=== PATIENT | female | born 1955 ===

== ENCOUNTER 2017-02-12 18:45 | Emergency (ER) | payer MEDICARE, OTHER ==
[2017-02-12 19:06] VITALS: RESP 20
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
[2017-02-12] MEDS ORDERED: Sodium Chloride 0.9% 1,000 ML IV ONE (19:47)
[2017-02-12 20:10] LABS: BASO # 0.1 K/uL (0.0-0.2); BASO % 0.8 % (0.0-2.0); EOS # 0.1 K/uL (0.0-0.7); EOS % 1.9 % (0.0-4.0); HEMATOCRIT 37.3 % (34.0-47.0); LYMPH # 3.2 K/uL (1.0-4.3); LYMPH % 42.9 % (20.0-40.0); MEAN CELL VOLUME 86.5 fL (81.0-99.0); MEAN CORPUSCULAR HEMOGLOBIN 28.6 pg (27.0-31.0); MEAN PLATELET VOLUME 10.4 fL (7.2-11.7); MONO # 0.6 K/uL (0.0-0.8); MONO % 8.1 % (0.0-10.0); RED CELL DISTRIBUTION WIDTH 17.4 % (11.5-14.5); WHITE BLOOD COUNT 7.5 K/uL (4.8-10.8)
[2017-02-12 20:50] LABS: CHLORIDE 102 mmol/L (98-107); SODIUM 140 mmol/L (132-148)
[2017-02-12 20:51] LABS: POTASSIUM 3.9 mmol/L (3.6-5.2)
[2017-02-12 20:53] LABS: ALB/GLOB RATIO 1.3 (1.0-2.1); ALKALINE PHOSPHATASE 106 U/L (38-126); ALT/SGPT 36 U/L (9-52); AST/SGOT 52 U/L (14-36); BILIRUBIN,TOTAL 0.1 mg/dL (0.2-1.3); BLOOD UREA NITROGEN 8 mg/dL (7-17); CARBON DIOXIDE 23 mmol/L (22-30); GFR AFRICAN-AMERICAN > 60; GLUCOSE,RANDOM 106 mg/dL (65-105); TOTAL PROTEIN 6.7 g/dL (6.3-8.3)
[2017-02-12 20:54] LABS: CALCIUM 8.4 mg/dl (8.6-10.4)
[2017-02-12 22:26] VITALS: BP 99/48; PULSE 93; TEMP 98; O2SAT 96
--- NOTE | 2017-02-13 11:25 | RAD ---
PROCEDURE: Left Hip X-ray Radiographs. HISTORY: [facility] COMPARISON: None. FINDINGS: BONES: No acute fracture. JOINTS: Status post bilateral hip arthroplasty. No evidence of prosthesis loosening. SOFT TISSUES: Normal. OTHER FINDINGS: None. IMPRESSION: No acute fracture.
--- NOTE | 2017-02-13 11:26 | RAD ---
PROCEDURE: Left femur HISTORY: [facility] COMPARISON: Not available TECHNIQUE: AP and lateral views FINDINGS: No fracture. Left hip arthroplasty. No evidence of prosthesis loosening. IMPRESSION: No acute fracture.
== END 2017-02-12 22:26 | disposition home or self-care (01) ==
LOC: C.ER 18:45 → MERGE 18:45 → C.ER 22:26
DX: S70.02XA Contusion of left hip, initial encounter (principal); S80.02XA Contusion of left knee, initial encounter; V09.3XXA Pedestrian injured in unspecified traffic accident, initial encounter
CPT/HCPCS: 73502; 73552; 80053; 85025; 86850; 86900; 96361; 96374; 96375; 99285; J2270; J2405; J7040

== ENCOUNTER 2017-08-27 12:14 | Emergency (ER) | payer MEDICARE, OTHER ==
[2017-08-27 12:14] VITALS: BMI 31.7
--- NOTE | 2017-08-27 13:48 | RAD ---
PROCEDURE: Right Ankle Radiographs. HISTORY: r/o fx COMPARISON: 02/13/2015 FINDINGS: BONES: Generalized osteopenia present. Dominant anterior dorsal talar beaking a noted. Prominent posterior talar process and/or partially fused os trigonum noted -similar minimal dorsal navicular spurring. Lateral talar dome spurring. JOINTS: Normal. No osteoarthritis. Ankle mortise maintained. Talar dome intact SOFT TISSUES: Normal. OTHER FINDINGS: None. IMPRESSION: Generalized osteopenia. No interval fracture. Hypertrophic bony changes -similar. No interval pathology appreciated
--- NOTE | 2017-08-27 13:49 | RAD ---
PROCEDURE: Right Knee Radiographs. HISTORY: r/o fx COMPARISON: None. FINDINGS: BONES: Medial lateral femoral tibial joint space narrowing. Lateral view oblique impeding patellofemoral joint space assessment. Normal bone mineralization. No fracture or dislocation. JOINTS: Minimal osteoarthritis. JOINT EFFUSION: None. OTHER FINDINGS: None. IMPRESSION: Minimal senescent changes. No fracture or lytic lesion
--- NOTE | 2017-08-27 13:53 | RAD ---
PROCEDURE: HISTORY: r/o fx COMPARISON: 02/12/2017 TECHNIQUE: AP view of the pelvis and applicable frog leg views obtained. [place] FINDINGS: Bilateral hip arthroplasty images noted. The right hip is more fully visualized. The extreme femoral stem is excluded on both images today Overall the prosthesis appears centered to the acetabulum and to the femoral shaft. As before 2 screws in the acetabulum are noted. The more medial screw projects beyond the right medial pelvic osseous brim. If further evaluation is needed regarding its precise position in the right hemipelvis with consider CT of the pelvis. Its position is unchanged The lateral acetabular roof coalescence subchondral cystic changes with spurring are similar. IMPRESSION: Status post bilateral hip arthroplasty. No gross change in the right hip hardware. The screws are as positioned above 1 screw projecting into the right hemipelvis as before. Please note the above comments/ considerations regarding additional elective CT imaging
[2017-08-27 14:40] VITALS: BP 120/70; PULSE 68; RESP 18; TEMP 97.3; O2SAT 99
--- NOTE | 2017-08-27 18:05 | C.PDOC ---
History Of Present Illness 62 year old female, with a history of bilateral hip replacement, presents to the ED with complaints of pain to the right hip and knee, status post slip and fall onto her buttocks yesterday. Patient reports she fell onto her buttocks and has chronic joint pain, secondary to rheumatoid arthritis. She denies weakness, numbness, incontinence, or other complaints. Chief Complaint (Nursing): Lower Extremity Problem/Injury History Per: Patient History/Exam Limitations: no limitations Onset/Duration Of Symptoms: Hrs Current Symptoms Are (Timing): Still Present Recent travel outside of the [place]: No - Hip Description Of Injury: Fell - Knee Description Of Injury: Fell - Ankle/Foot Description Of Injury: Fell Past Medical History Reviewed: Historical Data, Nursing Documentation, Vital Signs Vital Signs: Last Vital Signs Temp 97.3 F L 08/27/17 14:37 Pulse 68 08/27/17 14:37 Resp 18 08/27/17 14:37 BP 120/70 08/27/17 14:37 Pulse Ox 99 08/27/17 18:50 - Medical History PMH: Anxiety, Arthritis, Osteoporosis, Rheumatoid Arthritis Surgical History: Cholecystectomy Family History: States: Unknown Family Hx, CAD - Social History Hx Tobacco Use: No Hx Alcohol Use: No Hx Substance Use: No - Immunization History Hx Tetanus Toxoid Vaccination: Yes Hx Influenza Vaccination: Yes Hx Pneumococcal Vaccination: Yes Review Of Systems Musculoskeletal: Positive for: Leg Pain (right knee and hip pain), Foot Pain ( right ankle pain ). Negative for: Back Pain Neurological: Negative for: Weakness, Numbness Physical Exam - Physical Exam Appears: Non-toxic, No Acute Distress Skin: Warm, Dry Head: Atraumatic, Normacephalic Neck: Normal ROM, No Midline Cervical Tenderness, No Paracervical Tenderness, Supple Cardiovascular: Rhythm Regular, No Murmur Respiratory: No Rales, No Rhonchi, No Wheezing, Other (Clear to auscultation bilaterally ) Gastrointestinal/Abdominal: Soft, No Tenderness, No Distention, No Guarding, No Rebound Extremity: No Normal ROM (decreased ROM in both hips ), No Tenderness, Capillary Refill (good capillary refill, less than two seconds ), Deformity (no changes to deformity of bilateral hangs, according to patient, secondary to rheumatoid arthritis ), No Swelling, Other (Arthritic changes in bilateral knees and ankles ) Pulses: Left Radial: Normal, Right Radial: Normal, Left Dorsalis Pedis: Normal, Right Dorsalis Pedis: Normal Neurological/Psych: Oriented x3, Normal Motor, Normal Sensation ED Course And Treatment O2 Sat by Pulse Oximetry: 99 (RA) - Other Rad Right Ankle X-Ray X-Ray: Viewed By Me, Read By Radiologist Interpretation: FINDINGS: BONES: Generalized osteopenia present. Dominant anterior dorsal talar beaking a noted. Prominent posterior talar process and/or partially fused os trigonum noted -similar minimal dorsal navicular spurring. Lateral talar dome spurring. JOINTS: Normal. No osteoarthritis. Ankle mortise maintained. Talar dome intact. SOFT TISSUES: Normal. OTHER FINDINGS: None. IMPRESSION: Generalized osteopenia. No interval fracture. Hypertrophic bony changes -similar. No interval pathology appreciated Right Hip X-Ray X-Ray: Viewed By Me, Read By Radiologist Interpretation: FINDINGS: Bilateral hip arthroplasty images noted. The right hip is more fully visualized. The extreme femoral stem is excluded on both images today. Overall the prosthesis appears centered to the acetabulum and to the femoral shaft. As before 2 screws in the acetabulum are noted. The more medial screw projects beyond the right medial pelvic osseous brim. If further evaluation is needed regarding its precise position in the right hemipelvis with consider CT of the pelvis. Its position is unchanged. The lateral acetabular roof coalescence subchondral cystic changes with spurring are similar. IMPRESSION: Status post bilateral hip arthroplasty. No gross change in the right hip hardware. The screws are as positioned above 1 screw projecting into the right hemipelvis as before. Please note the above comments / considerations regarding additional elective CT imaging Right Knee X-Ray X-Ray: Viewed By Me, Read By Radiologist Interpretation: FINDINGS: BONES: Medial lateral femoral tibial joint space narrowing. Lateral view oblique impeding patellofemoral joint space assessment. Normal bone mineralization. No fracture or dislocation. JOINTS: Minimal osteoarthritis. JOINT EFFUSION: None. OTHER FINDINGS: None. IMPRESSION: Minimal senescent changes. No fracture or lytic lesion Progress Note: Patient was given motrin. X-Ray of the right hip, knee, and ankle were ordered. Disposition - Disposition Referrals: [facility] Toby Ventura, [Non-Staff] - Disposition: HOME/ ROUTINE Disposition Time: 14:20 Condition: GOOD Additional Instructions: Thank you for letting us take care of you today. Your provider was Dr. Rai. You were treated for a hip and knee sprain. The emergency medical care you received today was directed at your acute symptoms. If you were prescribed any medication, please fill it and take as directed. It may take several days for your symptoms to resolve. Return to the Emergency Department if your symptoms worsen, do not improve, or if you have any other problems. Please contact your doctor or call one of the physicians/clinics you have been referred to that are listed on the Patient Visit Information form that is included in your discharge packet. Bring any paperwork you were given at discharge with you along with any medications you are taking to your follow up visit. Our treatment cannot replace ongoing medical care by a primary care provider (PCP) outside of the emergency department. Thank you for allowing the [facility] team to be part of your care today. Follow up with your primary doctor in 1-2 days for re-evaluation and further management. Prescriptions: traMADol [Ultram] 50 mg PO Q8 PRN #10 tab PRN Reason: Pain, Severe (8-10) Instructions: Knee Sprain (ED), Hip Pain (ED) Forms: [employer] (Mexican) - Clinical Impression Clinical Impression: Contusion of hip, Contusion of knee - Scribe Statement The provider has reviewed the documentation as recorded by the Scribphillip Rodriguez All medical record entries made by the Saranibphillip were at my direction and personally dictated by me. I have reviewed the chart and agree that the record accurately reflects my personal performance of the history, physical exam, medical decision making, and the department course for this patient. I have also personally directed, reviewed, and agree with the discharge instructions and disposition.
== END 2017-08-27 14:39 | disposition home or self-care (01) ==
LOC: C.ER 12:14
DX: S70.01XA Contusion of right hip, initial encounter (principal); S80.01XA Contusion of right knee, initial encounter; W01.0XXA Fall on same level from slipping, tripping and stumbling without subsequent striking against object, initial encounter; M06.9 Rheumatoid arthritis, unspecified; M81.0 Age-related osteoporosis without current pathological fracture; Z96.643 Presence of artificial hip joint, bilateral

== ENCOUNTER 2019-03-22 12:57 | Outpatient (CLI) | payer MEDICARE, OTHER | END 2019-03-22 12:58 | disposition home or self-care (01) | LOC: C.USIC 12:58 | DX: R10.11 Right upper quadrant pain (principal) ==

== ENCOUNTER 2019-03-24 08:10 | Day surgery (SDC) | payer MEDICARE, OTHER ==
[2019-03-24 09:02] VITALS: BMI 34.2
[2019-03-24] MEDS ORDERED: Propofol 10 mg/ml Inj (20 ML) ONE (10:45)
[2019-03-24 11:38] VITALS: TEMP 97
[2019-03-24 11:44] VITALS: O2SAT 100
[2019-03-24 12:42] VITALS: BP 129/62; PULSE 70; RESP 16
== END 2019-03-24 12:35 | disposition home or self-care (01) ==
LOC: C.ENDO 08:10
PROVIDERS: ATTEND Internal Medicine Gastroenterology
DX: Z12.11 Encounter for screening for malignant neoplasm of colon (principal); K64.1 Second degree hemorrhoids; K29.50 Unspecified chronic gastritis without bleeding; B96.81 Helicobacter pylori [H. pylori] as the cause of diseases classified elsewhere; K21.0 Gastro-esophageal reflux disease with esophagitis; R10.13 Epigastric pain; R13.10 Dysphagia, unspecified; M06.9 Rheumatoid arthritis, unspecified; M32.9 Systemic lupus erythematosus, unspecified; Z79.899 Other long term (current) drug therapy; Z96.643 Presence of artificial hip joint, bilateral; Z90.49 Acquired absence of other specified parts of digestive tract; Z87.891 Personal history of nicotine dependence
CPT/HCPCS: 43239; 88305; 88312; 88313; 88342; G0121; J2001; J2704; J3010